=== PATIENT | male | born 1990 | race Caucasian/White ===

== ENCOUNTER 2016-09-20 12:13 | Emergency (ER) | payer OTHER ==
[~2016-09-20] VITALS: Wt 79.5 kg
[2016-09-20 13:45] LABS: ADD SCAN DIFF NO
[2016-09-20 13:50] LABS: BASOPHILS % 0.3 % (0.0-2.0); EOSINOPHILS # 0.1 10^3/ul (0.0-0.5); EOSINOPHILS % 0.9 % (0.0-7.0); HEMATOCRIT 42.6 % (42.0-52.0); HEMOGLOBIN 14.8 g/dl (14.0-18.0); LYMPHOCYTES # 1.4 10^3/ul (0.8-2.9); LYMPHOCYTES % 20.8 % (15.0-51.0); MEAN CORPUSCULAR HEMOGLOBIN 30.9 pg (29.0-33.0); MEAN CORPUSCULAR HGB CONC 34.7 g/dl (32.0-37.0); MEAN CORPUSCULAR VOLUME 88.9 fl (82.0-101.0); MEAN PLATELET VOLUME 10.2 fl (7.4-10.4); MONOCYTE # 0.3 10^3/ul (0.3-0.9); MONOCYTES % 4.9 % (0.0-11.0); PLATELET COUNT 204 10^3/UL (140-415); RED BLOOD COUNT 4.79 10^6/ul (4.70-6.10); RED CELL DISTRIBUTION WIDTH 11.9 % (11.5-14.5); WHITE BLOOD COUNT 6.8 10^3/ul (4.8-10.8)
[2016-09-20 14:10] LABS: INR 1.09; PROTIME 14.1 Sec (12.2-14.2); PT RATIO 1.1
--- NOTE | 2016-09-20 14:10 | RADRPT ---
PROCEDURE: XR Chest. CLINICAL INDICATION: chest pain TECHNIQUE: Single frontal view of the chest was obtained COMPARISON: None FINDINGS: The heart and mediastinum are within normal limits. The lungs are clear. There is no pleural effusion or pneumothorax. RPTAT: AA IMPRESSION: No acute disease. .Hardy Little MD, Date Time Electronically viewed and signed by .Hardy Little MD, on 09/20/2016 14:09 .S/
[2016-09-20 14:11] LABS: ANION GAP 11 (8-16); BLOOD UREA NITROGEN 9 mg/dl (7-20); CALCIUM 9.1 mg/dl (8.4-10.2); CARBON DIOXIDE 28 mmol/L (21-31); CHLORIDE 105 mmol/L (97-110); CREATININE 0.87 mg/dl (0.61-1.24); GLUCOSE 97 mg/dl (70-220); PARTIAL THROMBOPLASTIN TIME 26.9 Sec (25.0-35.0); POTASSIUM 4.3 mmol/L (3.5-5.1); SODIUM 140 mmol/L (135-144)
[2016-09-20 14:23] LABS: D-DIMER < 220.00 ng/ml (<460)
--- NOTE | 2016-09-20 14:28 | RADRPT ---
PROCEDURE: CT Brain without contrast. CLINICAL INDICATION: Complains of facial numbness. TECHNIQUE: A CT of the brain was performed on a [facility] 64-slice CT scanner utilizing axial imaging from the skull base through the vertex without IV contrast. Multiplanar reformatted images were made. Images were reviewed on a PACS workstation. The CTDIvol is 45.01 mGy and the DLP is 720 .23 mGycm. One or the following dose reduction techniques were used: -Automated exposure control. -Adjustment of the mA and/or KV according to patient's size. -Use of iterative reconstruction technique. COMPARISON: None FINDINGS: There is no intracranial hemorrhage, mass effect, or midline shift. No extra-axial fluid collection is seen. The ventricles and sulci are normal in size and configuration. The density of the brain is normal, and the aquino white matter differentiation appears well-preserved. The visualized paranasal sinuses and osseous structures are grossly unremarkable. IMPRESSION: 1. No acute intracranial process identified. RPTAT: [facility] Physician Estiven Date Time Electronically viewed and signed by Physician Estiven on 09/20/2016 14:28 /
[2016-09-20 14:42] LABS: TROPONIN-I < 0.012 ng/ml (0.00-0.12)
[2016-09-20] MEDS ORDERED: IBUP-1542 PO (15:10)
--- NOTE | 2016-09-20 15:26 | ERD ---
ER Documentation Chief Complaint Date/Time DATE: 09/20/16 TIME: 15:25 Chief Complaint TINGLING SENSATION ON FACE, BODY SORENESS, ONSET 2 DAYS HPI This is a 26-year-old male that presents to the ER for multiple complaints. Patient states that 4 days ago he developed mid sternal chest pain that is described as tightness. Patient states that it is worse whenever he is walking and better when he is resting. Patient states that pain is dull and describes it more as a discomfort. He denies any trauma to his chest wall Patient did travel from [place] which was a [address] recently. Patient states that today he took nitroglycerin which helped him with this chest pain however chest pain returned. Patient tried taking nitroglycerin 2 more times however did not deploy his chest pain. Yesterday patient took 1 puff of a cigarette and began to feel facial numbness and tingling to the left side of his face.. Denies any upper or lower extremity weaknesses. He does admit to left cramp soreness. He denies any redness or swelling of the left calf. Patient also recently started a new diet which consists of only 600 gina a day and taking hCG hormone. Patient also smokes however he has not smoked since yesterday. Patient denies any nausea vomiting or diarrhea. He denies any abdominal pain. He does not have any cough or cold symptoms, he denies any fever or chills. ROS 12 point review of systems was done, all negative except per HPI. Medications Home Meds Active Scripts Ibuprofen* (Motrin*) 600 Mg Tab, 600 MG PO Q6, #30 TAB Prov:TANJAMAIA C 09/20/16 Allergies Allergies: Coded Allergies: No Known Allergy (Unverified , 09/20/16) PMhx/Soc Medical and Surgical Hx: pt denies Medical Hx, pt denies Surgical Hx Hx Alcohol Use: Yes Hx Substance Use: No Hx Tobacco Use: Yes Smoking Status: Current every day smoker Physical Exam Vitals Vital Signs Date Time Temp Pulse Resp B/P Pulse Ox O2 Delivery O2 Flow Rate FiO2 09/20/16 12:16 97.6 86 17 146/88 97 Physical Exam GENERAL: The patient is well developed and appropriate for usual state of health , in no apparent distress. HEENT: Atraumatic. Conjunctivae are pink. Pupils equal, round, and reactive to light. Extraocular muscles are grossly intact. Bilateral tympanic membranes are clear with no evidence of erythema, effusion or dulling of the light reflex. The oropharynx is clear with no erythema or exudates. NECK: C-spine is soft and supple. There is no cervical lymphadenopathy. CHEST: Clear to auscultation bilaterally. There are no rales, wheezes or rhonchi. HEART: Regular rate and rhythm. No murmurs, clicks, rubs or gallops. ABDOMEN: Soft, nontender and nondistended. Good bowel sounds. No rebound or guarding. No gross peritonitis. No gross organomegaly or masses. No Pettit sign or McBurney point tenderness. No pulsatile masses. BACK: No midline or flank tenderness. EXTREMITIES: Equal pulses bilaterally. There is no peripheral clubbing, cyanosis or edema. No focal swelling or erythema. Full range of motion. Grossly neurovascularly intact. NEURO: Alert and oriented. Cranial nerves II through XII are intact. Motor strength in all 4 extremities with 5/5 strength. Sensation grossly intact. Normal speech and gait. SKIN: There is no apparent rash or petechia. The skin is warm and dry. Result Diagram: 09/20/16 1325 09/20/16 1325 Results 24 hrs Laboratory Tests Test 09/20/16 13:25 White Blood Count 6.810^3/ul Red Blood Count 4.7910^6/ul Hemoglobin 14.8g/dl Hematocrit 42.6% Mean Corpuscular Volume 88.9fl Mean Corpuscular Hemoglobin 30.9pg Mean Corpuscular Hemoglobin Concent 34.7g/dl Red Cell Distribution Width 11.9% Platelet Count 85343^3/UL Mean Platelet Volume 10.2fl Neutrophils % 73.0% Lymphocytes % 20.8% Monocytes % 4.9% Eosinophils % 0.9% Basophils % 0.3% Nucleated Red Blood Cells % 0.0/100WBC Neutrophils # 5.010^3/ul Lymphocytes # 1.410^3/ul Monocytes # 0.310^3/ul Eosinophils # 0.110^3/ul Basophils # 0.010^3/ul Nucleated Red Blood Cells # 0.010^3/ul Prothrombin Time 14.1Sec Prothrombin Time Ratio 1.1 INR International Normalized Ratio 1.09 Activated Partial Thromboplast Time 26.9Sec D-Dimer < 220.00ng/ml D-Dimer Comment Sodium Level 140mmol/L Potassium Level 4.3mmol/L Chloride Level 105mmol/L Carbon Dioxide Level 28mmol/L Anion Gap 11 Blood Urea Nitrogen 9mg/dl Creatinine 0.87mg/dl Glucose Level 97mg/dl Calcium Level 9.1mg/dl Troponin I < 0.012ng/ml Procedures/MDM Differential diagnosis includes but is not limited to; STEMI, dissection, pneumothorax, PE, esophageal rupture, tamponade, pneumonia, pericarditis, GERD, musculoskeletal, endocarditis, anxiety. EKG was taken [address] elevation or T-wave inversion. Read by Dr. Henry. At this time I do not believe that patient is having acute cardiac emergency. Troponin was negative and his pain has been going on for the last 4 days. Patient has multiple symptoms which may be related to his new diet of only 600 gina. Patient is neurologically intact with no focal neurological deficits or weaknesses. I doubt intracranial pathology. He is afebrile and well- appearing. I doubt infectious etiology. Patient will be sent home with ibuprofen. He is to follow-up with his primary care doctor within 1-2 days return to ER sooner if symptoms worsen. My medical decision making was shared with the patient understands and agrees with plan Departure Diagnosis: Primary Impression: Chest pain Additional Impression: Paresthesias Condition: Stable Patient Instructions: Chest Pain, Uncertain Cause, Paraesthesias Additional Instructions: Call your primary care doctor TOMORROW for an appointment during the next 1-2 days.See the doctor sooner or return here if your condition worsens before your appointment time. MAIA AGRAWAL Sep 20, 2016 15:26
[2016-09-20 15:43] VITALS: BP 122/64; PULSE 75; RESP 19; TEMP 98.5
== END 2016-09-20 15:44 | disposition home or self-care (01) ==
LOC: FTE 12:13
DX: R07.9 Chest pain, unspecified (principal); F17.210 Nicotine dependence, cigarettes, uncomplicated
CPT/HCPCS: 70450; 71010; 80048; 84484; 85025; 85378; 85610; 85730; 93005